=== PATIENT | male | born 1955 | race Caucasian/White ===

== ENCOUNTER → 2018-07-09 | Outpatient (CLI) | payer OTHER | END | disposition home or self-care (01) | LOC: RAD 12:23 | PROVIDERS: ATTEND Family Medicine | DX: R79.1 Abnormal coagulation profile (principal); M79.662 Pain in left lower leg; R60.9 Edema, unspecified; I10 Essential (primary) hypertension; E78.2 Mixed hyperlipidemia; G43.909 Migraine, unspecified, not intractable, without status migrainosus; Z80.42 Family history of malignant neoplasm of prostate; Z83.438 Family history of other disorder of lipoprotein metabolism and other lipidemia | CPT/HCPCS: 93970 ==